=== PATIENT | male | born 1980 | race Caucasian/White ===

== ENCOUNTER 2023-03-02 08:06 | Outpatient (CLI) | payer OTHER, SELFPAY | END 2023-03-02 08:07 | disposition home or self-care (01) | PROVIDERS: PCP Family Medicine; Visit Provider Family Medicine | DX: Z00.00 Encounter for general adult medical examination without abnormal findings (principal); I10 Essential (primary) hypertension; E78.00 Pure hypercholesterolemia, unspecified; F41.8 Other specified anxiety disorders; Z12.5 Encounter for screening for malignant neoplasm of prostate | CPT/HCPCS: 80053; 80061; 84153 ==

== ENCOUNTER 2023-07-26 18:28 | Outpatient (CLI) | payer BC, SELFPAY | END 2023-07-26 18:29 | disposition home or self-care (01) | LOC: LKVREF 18:30 | PROVIDERS: PCP Family Medicine; Visit Provider Nurse Practitioner Family | DX: R50.9 Fever, unspecified (principal) | CPT/HCPCS: 86618 ==

== ENCOUNTER 2024-06-21 09:09 | Outpatient (CLI) | payer BC, SELFPAY | END 2024-06-21 09:10 | disposition home or self-care (01) | PROVIDERS: PCP Family Medicine; Referring Provider Family Medicine; Visit Provider Family Medicine | DX: I10 Essential (primary) hypertension (principal); Z80.42 Family history of malignant neoplasm of prostate; Z12.5 Encounter for screening for malignant neoplasm of prostate; Z13.6 Encounter for screening for cardiovascular disorders | CPT/HCPCS: 80053; 80061; G0103 ==